=== PATIENT | female | born 1995 | race Caucasian/White ===

== ENCOUNTER 2020-02-11 13:21 | Inpatient (IN) | payer OTHER ==
[~2020-02-11] VITALS: Ht 170.2 cm; Wt 139.5 kg
[2020-03-12 08:00] VITALS: BP 127/82; PULSE 99; TEMP 98.1
[2020-03-12 08:38] VITALS: BP 134/81; PULSE 91; TEMP 97.6
--- NOTE | 2020-03-12 09:02 | NUR ---
Pt and souse arrive ambulatory on unit at 0740. Pt expecting induction of labor as scheduled, did not received message left this morning that induction on hold. Pt irritable and upset by this information. Pt states she has been having bright red vaginal bleeding since yesterday. Reported that physician noted red bleeding when checked in the office, this continued with wiping after voiding yesterday. Pt also reported "a lot" of vaginal bleeding this morning, with thick mucous. Pt states she has had a lot of cramping but "has been induced with my other babies so I don't know if there are contractions". Pt denies leaking of fluid and reports good movement. SVE at 0802 150/-3, small amount of old blood noted on glove, no current bleeding noted. FHR WNL, Category 1 strip with no contractions recorded. Dr. Lan on unit, reviews FHR strip and exam information. Discharge orders given for pt, induction to be rescheduled at this time. Pt unhappy with information but signed discharge papers and left unit ambulatory with spouse at 0845.
[2020-03-14] VITALS (48 sets, daily range): BP systolic 89–138; BP diastolic 47–82; PULSE 67–99; TEMP 98–98.4
--- NOTE | 2020-03-14 10:50 | NUR ---
Patient arrives ambulatory with spouse for scheduled induction of labor. Patient denies contractions, ROM, or vaginal bleeding. Reports normal movement. Patient changes into gown, EFM explained and placed. VS obtained. Reviewed plan of care for induction, patient agrees and denies questions. 1105- IV started in RH, labs obtained. LR infusing per protocol. Assessment completed. Consents explained and signed. Denies questions. 1130- Reactive, category 1 FHR strip obtained. Pitocin administration reviewed with patient, agrees and denies questions. Pitocin started at 2 mU per protocol and order. Will continue to monitor.
[2020-03-14 11:36] LABS: BASO % 0.2 % (0.0-2.0); EOS # 0.1 (0.0-0.7); EOS % 0.6 % (0-4.0); GRAN # 8.5 (1.4-6.5); GRAN % 67.1 % (42.2-75.2); HEMOGLOBIN 12.4 g/dl (12.5-16.0); LYMPH % 23.7 % (20.0-51.0); MEAN CELL VOLUME 84 fl (80.0-100.0); MEAN CORPUSCULAR HEMOGLOBIN 28 pg (27.0-31.0); MEAN CORPUSCULAR HGB CONC 34 g/dl (33.0-37.0); MEAN PLATELET VOLUME 11.7 fl (7.4-10.4); MONO % 7.9 % (1.7-9.3); PLATELET COUNT 268 K/mm3 (130-400); RED BLOOD COUNT 4.38 M/mm3 (4.10-5.30); REDCELL DISTRIBUTION WIDTH-CV 14.3 % (11.5-14.5)
[2020-03-14 11:43] LABS: HEMATOCRIT 36.7 % (37.0-47.0)
--- NOTE | 2020-03-14 12:22 | NUR ---
Patient assisted to birthing ball. Monitors adjusted.
--- NOTE | 2020-03-14 13:15 | NUR ---
Dr. Lan at bedside with Brian Mclean RN. SVE per provider /. Patient repositioned lexis position. Orders to continue Pitocin induction.
--- NOTE | 2020-03-14 16:50 | NUR ---
Dr. Lan on unit. Reviews FHR strip and contraction pattern. Discussing plan of care with patient for AROM, patient agrees. 1653- SVE per provider /. AROM by Dr. Lan for moderate amount of clear fluid. Pericare given and patient updated on plan of care. Orders to hold Pitocin at 26 mU at this time. Patient may have epidural when desired.
--- NOTE | 2020-03-14 17:30 | NUR ---
Dr. Lan on unit, reviews FHR strip and updated on patient assessment. patient requesting epidural. Jolly Arzola HOME ASSESSMENT NURSE notified. LR bolus infusing.
--- NOTE | 2020-03-14 17:35 | NUR ---
1735- Patient assisted to sit on edge of bed for epidural placement. Difficulty tracing FHR strip continuously due to maternal habitus and position. 1741- Epidural test dose by Jolly Arzola CRNA. Patient tolerates well, no adverse reactions noted. See anesthesia record. 1746- Patient repositioned WL following epidural and updated on plan of care and safety.
[2020-03-15] VITALS (24 sets, daily range): BP systolic 109–148; BP diastolic 54–108; PULSE 71–103; TEMP 97.8–98.4
--- NOTE | 2020-03-15 02:24 | NUR ---
0224- PROVIDER TO BEDSIDE TO EVALUATE PUSHING. RN REMAINS AT BEDSIDE. 0227- 1ST PUSH WITH PROVIDER. RN AND PROVIDER REMAIN AT BEDSIDE. 0242- PROVIDER STATED READY FOR DELIVERY. CALLED NURSERY STAFF AND PREPARED ROOM AND PATIENT FOR DELIVERY. VASQUEZ REMOVED BY RN. 0248- OF VIABLE FEMALE INFANT WITH [id number] STATED BY PROVIDER. INFANT CORD CUT AND NURSERY NURSE ASSUMES CARE AT WARMER. 0253- OF PLACENTA. FUNDUS FIRM BY PROVIDER WITH MODERATE AMOUNT OF BLOOD NOTED. PROVIDER NOTED RIGHT LABIAL TEAR, REPAIRED IT AND NOTED 250 EBL. 0305- RECOVERY STARTED. PATIENT AND ROOM CLEANED UP. CLEAN CHUX, PERIPAD AND ICE PACK TO PERINEUM. FUNDUS FIRM WITH MODERATE AMOUNT OF BLOOD NOTED AND SOME CLOTS.
--- NOTE | 2020-03-15 13:34 | NUR ---
Trials Manager offered congrats to patient.
[2020-03-16 00:45] VITALS: BP 106/37; PULSE 77; TEMP 98.2
[2020-03-16 08:30] VITALS: BP 143/67; PULSE 86; TEMP 97.9
--- NOTE | 2020-03-16 08:30 | NUR ---
Rests in bed, alert. Request pain medication. 0840 Ibuprofen 800 mg per request and as ordered.
[2020-03-16 12:00] VITALS: BP 122/63; PULSE 68
[2020-03-16] MEDS ORDERED: IBU800 M1 PO (12:06)
== END 2020-03-16 13:15 | disposition home or self-care (01) | DRG 807 ==
LOC: EDSTATUS 13:21 → LDRO 15:06 → OB 03-12 07:33 → LDR 03-12 07:33 → OB 03-12 13:22 → LDR 03-14 10:43 → OB 03-15 05:30
PROVIDERS: ADMIT Student in an Organized Health Care Education/Training Program
PROC: 10E0XZZ Delivery of Products of Conception, External Approach (ICD-10-PCS; principal; 2020-03-14)
PROC: 10907ZC Drainage of Amniotic Fluid, Therapeutic from Products of Conception, Via Natural or Artificial Opening (ICD-10-PCS; 2020-03-14)
PROC: 0UQMXZZ Repair Vulva, External Approach (ICD-10-PCS; 2020-03-14)
DX: O99.284 Endocrine, nutritional and metabolic diseases complicating childbirth (principal); Z37.0 Single live birth; O99.214 Obesity complicating childbirth; E66.9 Obesity, unspecified; E28.2 Polycystic ovarian syndrome; O26.893 Other specified pregnancy related conditions, third trimester; O70.0 First degree perineal laceration during delivery; O69.81X0 Labor and delivery complicated by cord around neck, without compression, not applicable or unspecified; Z3A.39 39 weeks gestation of pregnancy; Z67.91 Unspecified blood type, Rh negative
CPT/HCPCS: J2590; J7120

== ENCOUNTER → 2020-03-07 | Outpatient (CLI) | payer OTHER ==
[~2020-03-07] MED LIST: IBU800 M1 PO
== END | disposition still patient (30) ==
LOC: ZCOL.LAB
DX: Z20.828 Contact with and (suspected) exposure to other viral communicable diseases (principal)

== ENCOUNTER → 2020-03-12 | Outpatient (CLI) | payer OTHER ==
[2020-03-12 08:38] VITALS: BP 134/81; PULSE 91; TEMP 97.6
--- NOTE | 2020-03-12 09:02 | NUR ---
Pt. and spouse arrive ambulatory on unit at 0740. Pt expecting induction of labor as scheduled, did not receive message left this morning that induction on hold. Pt irritable and upset by this information. Pt states she has been having bright red vaginal bleeding since yesterday. Reported that physician noted red bleeding when checked in the office, this continues with wiping after voiding yesterday. Pt also reported "a lot" of vaginal bleeding this morning, with thick mucous. Pt states she has had a lot of cramping but "has been induced with my other babies so I don't know if there are contractions". Pt denies leaking of fluid and reports good movement. SVE at 0802 150/-3, small amount of old blood noted on glove, no current bleeding noted. FHR WNL, Category 1 strip with no contractions recorded. Dr. Lan on unit, reviews FHR strip and exam information. Discharge orders given for pt, induction to be rescheduled at this time. Pt unhappy with information but signed discharge papers and left unit ambulatory with spouse at 0845.
== END ==
LOC: LDRO 08:00
DX: O46.90 Antepartum hemorrhage, unspecified, unspecified trimester (principal); O26.899 Other specified pregnancy related conditions, unspecified trimester; R25.2 Cramp and spasm; Z3A.00 Weeks of gestation of pregnancy not specified